=== PATIENT | male | born 1960 ===

== ENCOUNTER 2020-11-21 11:43 | Emergency (ER) | payer SELFPAY ==
[~2020-11-21] VITALS: Ht 185.4 cm; Wt 102.1 kg
[2020-11-21] MEDS ORDERED: Monodox100 MG PO (12:02)
[2020-11-21] MEDS ORDERED: Cephalexin500 MG PO (12:02)
== END 2020-11-21 12:00 | disposition home or self-care (01) ==
LOC: ER 11:43
DX: L03.115 Cellulitis of right lower limb (principal)
CPT/HCPCS: 99282